=== PATIENT | female | born 1990 | race African-American/Black ===

== ENCOUNTER 2020-01-16 02:08 | Emergency (ER) | payer OTHER ==
[~2020-01-16] VITALS: Ht 188 cm; Wt 79.4 kg
[2020-01-16 04:30] VITALS: BP 148/88
[2020-01-16] MEDS ORDERED: IBUPROFEN 800 MG TAB PO ONE (04:30)
== END 2020-01-16 04:47 | disposition home or self-care (01) ==
LOC: ER 02:13
DX: S93.401A Sprain of unspecified ligament of right ankle, initial encounter (principal); S20.211A Contusion of right front wall of thorax, initial encounter; F17.210 Nicotine dependence, cigarettes, uncomplicated; Z76.5 Malingerer [conscious simulation]; W17.89XA Other fall from one level to another, initial encounter; Y93.89 Activity, other specified; Y92.89 Other specified places as the place of occurrence of the external cause; Y99.8 Other external cause status
CPT/HCPCS: 71250; 73630